=== PATIENT | male | born 1945 | race Caucasian/White ===

== ENCOUNTER 2024-02-21 11:19 | Outpatient (RCR) | payer MEDICARE, SELFPAY | END 2024-02-21 23:59 | disposition home or self-care (01) | LOC: RPT 11:19 | DX: Z47.89 Encounter for other orthopedic aftercare (principal); Z98.890 Other specified postprocedural states; M75.121 Complete rotator cuff tear or rupture of right shoulder, not specified as traumatic; Z73.6 Limitation of activities due to disability | CPT/HCPCS: 97010; 97110; 97112; 97140; 97161; 97530 ==

== ENCOUNTER 2024-03-20 10:19 | Outpatient (RCR) | payer MEDICARE, SELFPAY | END 2024-03-20 23:59 | disposition home or self-care (01) | LOC: RPT 10:19 | DX: M75.121 Complete rotator cuff tear or rupture of right shoulder, not specified as traumatic (principal); Z73.6 Limitation of activities due to disability; Z53.33 Arthroscopic surgical procedure converted to open procedure | CPT/HCPCS: 97110; 97112; 97140 ==

== ENCOUNTER 2024-04-21 10:15 | Outpatient (RCR) | payer MEDICARE, SELFPAY | END 2024-04-21 23:59 | disposition home or self-care (01) | LOC: RPT 10:15 | PROVIDERS: ATTENDING PHYSICIAN Orthopaedic Surgery | DX: Z47.89 Encounter for other orthopedic aftercare (principal); M75.121 Complete rotator cuff tear or rupture of right shoulder, not specified as traumatic; Z73.6 Limitation of activities due to disability | CPT/HCPCS: 97110; 97112; 97140 ==

== ENCOUNTER 2024-04-27 09:58 | Outpatient (RCR) | payer MEDICARE, SELFPAY | END 2024-04-27 12:34 | disposition home or self-care (01) | LOC: RPT 09:58 | PROVIDERS: ATTENDING PHYSICIAN Orthopaedic Surgery | DX: M75.121 Complete rotator cuff tear or rupture of right shoulder, not specified as traumatic (principal); Z98.890 Other specified postprocedural states; Z73.6 Limitation of activities due to disability | CPT/HCPCS: 97110 ==